=== PATIENT | male | born 1950 | race Caucasian/White ===

== ENCOUNTER 2022-05-02 14:51 | Emergency (ER) | payer OTHER ==
[~2022-05-02] VITALS: Ht 175.3 cm; Wt 82.9 kg
[~2022-05-02 14:51] MED LIST: ALPR1TAB7 PO; AMLO10TA70 PO; ASPI1TAB19 PO; BUSP5TAB51 PO; ESOM40CA39 PO; FENT25DI2 TD; MULTCAP45 PO; POLY335015 PO; TAMS0.4C36 PO; VALS40TA2 PO
[2022-05-02 15:08] VITALS: BP 124/63
[2022-05-02] MEDS ORDERED: ACETAMINOPHEN 500 MG TAB PO ONE (15:15)
[2022-05-02] MEDS ORDERED: HYDR-4902 PO (21:30)
== END 2022-05-02 22:49 | disposition home or self-care (01) ==
LOC: ER 14:52
DX: S46.912A Strain of unspecified muscle, fascia and tendon at shoulder and upper arm level, left arm, initial encounter (principal); S46.911A Strain of unspecified muscle, fascia and tendon at shoulder and upper arm level, right arm, initial encounter; I10 Essential (primary) hypertension; E78.5 Hyperlipidemia, unspecified; Z88.6 Allergy status to analgesic agent; Z79.899 Other long term (current) drug therapy; Z90.89 Acquired absence of other organs; W18.39XA Other fall on same level, initial encounter; Y93.89 Activity, other specified; Y92.89 Other specified places as the place of occurrence of the external cause; Y99.8 Other external cause status
CPT/HCPCS: 73030; 73110; 73130